=== PATIENT | female | born 1995 | race Hispanic/Latino ===

== ENCOUNTER 2018-06-03 17:43 | Emergency (ER) | payer BC ==
[2018-06-03 18:10] LABS: #Lymphocytes 2.2 thou/uL (1.20-3.40); #Monocytes 0.3 thou/uL (0.11-0.59); #Neutrophils 5.8 thou/uL (1.40-6.50); %Basophils 0.6 % (0.0-1.0); %Eosinophils 0.3 % (0.0-10.0); %Lymphocytes 25.8 % (21.0-51.0); %Monocytes 3.9 % (0.0-10.0); %Neutrophils 69.4 % (42.0-75.0); Hemoglobin 13.9 g/dL (12.0-16.0); Mean Corpuscular HGB CONC 35.3 g/dL (32.0-36.0); Mean Corpuscular Hemoglobin 31.9 pg (27.0-31.0); Mean Corpuscular Volume 90.5 fL (78.0-98.0); Mean Platelet Volume 8.5 fL (7.4-10.4); Platelet Count 256 thou/uL (130-400); RBC Distribution Width 11.1 % (11.5-14.5); Red Blood Cell (RBC) Count 4.35 mill/uL (4.20-5.40); White Blood Cell (WBC) Count 8.4 thou/uL (4.8-10.8)
[2018-06-03 18:31] LABS: Bilirubin Negative (Negative); Blood, Urine Negative (Negative); Clarity CLEAR (Clear); Glucose, Urine (Dipstick) Negative (Negative); Leukocyte Trace (Negative); Nitrite Negative (Negative); Protein, Urine (Dipstick) Negative (Neg-Trace); Specific Gravity, Urine 1.012 (1.002-1.036); Urobilinogen 0.2 mg/dL (0.2-1.0)
[2018-06-03 18:32] LABS: Pregnancy Test - Urine (BHCG) POSITIVE (Negative); Pregu Control Bar Appear? YES (CONTROL BAR); Specific Gravity 1.012 (1.002-1.036)
[2018-06-03 18:33] LABS: Pregu Control Background? CLEAR/WHITE (CLR/WHITE)
[2018-06-03 18:34] LABS: Bacteria/HPF None Seen HPF (None Seen); Hyaline Casts/LPF 0-3 HYALINE CAST LPF (0-3 Hyaline); Pathc Cast-AUWi Flag 0.58 (0-2.49); RBC/HPF 0-3 HPF (0-3); Squamous Epithelial 0-3 HPF (0-3)
[2018-06-03 18:38] LABS: ALT (SGPT) 15 U/L (8-55); AST (SGOT) 13 U/L (5-34); Albumin 4.3 g/dL (3.5-5.0); Alkaline Phosphatase 52 U/L (40-150); Anion Gap 12 mmol/L (10-20); BUN (Urea Nitrogen) 10 mg/dL (7.0-18.7); Bilirubin, Total 0.8 mg/dL (0.2-1.2); Calc. Creatinine Clearance 0 mL/min (70-130); Calcium 9.5 mg/dL (7.8-10.44); Carbon Dioxide 24 mmol/L (22-29); Chloride 103 mmol/L (98-107); Estimated GFR-MDRD Greater than 90; Glucose 108 mg/dL (70-105); Potassium 3.5 mmol/L (3.5-5.1); Protein, Total 7.3 g/dL (6.0-8.3); Sodium 135 mmol/L (136-145)
--- NOTE | 2018-06-03 21:54 | ULT ---
TRANSVAGINAL PELVIC ULTRASOUND: INDICATIONS: Pelvic pain. TECHNIQUE: Manzo-scale, color Doppler, and vascular duplex with spectral analysis was obtained. FINDINGS: There is an intrauterine gestational sac containing a yolk sac, measuring 4 mm, with a pole demond suring 4 mm. The estimated gestational age by ultrasound is 6 weeks 2 days with an estimated due date of 9. Cardiac activity is noted at 108 beats per minute. The uterus measures 9.5 x 5.8 x 5.7 cm. The right ovary measures 3.6 x 2 x 2.2 cm. The left ovary m easures 3 x 2.6 x 2.4 cm. There is normal flow to both ovaries. There is a 2 cm cyst within the rig ht ovary. There is a hemorrhagic cyst within the left ovary, measuring 1.1 cm. No free fluid is evident. IMPRESSION: 1. Single live intrauterine gestation. 2. Bilateral ovarian cysts. The hemorrhagic cyst seen within the left ovary measures 1.1 cm. POS: [facility]
[2018-06-06 03:07] LABS: Chlamydia by PCR Not Detected (NotDetected); GC by PCR Not Detected (NotDetected)
== END 2018-06-03 22:57 | disposition home or self-care (01) ==
LOC: ERS 17:43
DX: O99.89 Other specified diseases and conditions complicating pregnancy, childbirth and the puerperium (principal); R10.9 Unspecified abdominal pain; Z3A.01 Less than 8 weeks gestation of pregnancy
CPT/HCPCS: 36415; 76856; 80053; 81003; 81015; 81025; 85025; 87086; 87480; 87491; 87510; 87591; 87660

== ENCOUNTER 2018-06-24 21:09 | Emergency (ER) | payer BC ==
--- NOTE | 2018-06-25 07:02 | ULT ---
PELVIC ULTRASOUND: 06/24/2018 HISTORY: Pelvic pain and evidence or a prior intrauterine gestation on pelvic ultrasound of 06/03/2018. COMPARISON: 06/03/2018 FINDINGS: Again noted is a fluid collection in the endometrial canal, which contains a pole and a yolk sa c. Cardiac Doppler demonstrates heart tones with a heart rate of 182 beats per minute. The crown-rump length measures 2.07 cm, corresponding to a gestational age by ultrasound of 8 weeks 5 days. Gestational age by ultrasound is 8 weeks 3 days. There has been interval growth when compared to the prior exam. No subchorionic hemorrhage is appreciated on this examination. The right ovary measures 3 cm x 1.7 cm x 2.7 cm, with the left ovary measuring 4.1 cm x 2.2 cm x 3.2 cm. Doppler evaluation of each ovary with spectral analysis and color-flow evaluation demonstrates a rterial flow in each ovary. There are small hypoechoic to anechoic cystic structures involving each ovary, better imaged on the p rior examination and shown to represent dominant follicles. No free fluid is seen in the cul-de-sac. IMPRESSION: 1. Single intrauterine gestation with heart tones documented. Estimated gestational age by cr own-rump length is 8 weeks 5 days. 2. No evidence of a subchorionic hemorrhage. 3. Dominant follicles in each ovary. POS: [facility]
== END 2018-06-24 23:47 | disposition home or self-care (01) ==
LOC: ERS 21:09
DX: O9A.211 Injury, poisoning and certain other consequences of external causes complicating pregnancy, first trimester (principal); S70.00XA Contusion of unspecified hip, initial encounter; Z3A.01 Less than 8 weeks gestation of pregnancy; W01.0XXA Fall on same level from slipping, tripping and stumbling without subsequent striking against object, initial encounter
CPT/HCPCS: 76856; 93976

== ENCOUNTER 2019-01-31 09:03 | Inpatient (IN) | payer BC, OTHER ==
[2019-01-31 09:40] VITALS: BMI 37.8
[2019-01-31] MEDS ORDERED: Acetaminophen 500 MG TAB PO PRN (09:51)
[2019-01-31] MEDS ORDERED: Misoprostol 200 MCG TAB PR PRN (09:51)
[2019-01-31] MEDS ORDERED: Promethazine HCl 25 MG/ML VIAL IM PRN (09:51)
[2019-01-31] MEDS ORDERED: Ondansetron PF 4 MG/2 ML Vial IVP PRN ×2 (09:51→11:27)
[2019-01-31] MEDS ORDERED: Ibuprofen 800 MG TAB PO PRN (09:51)
[2019-01-31] MEDS ORDERED: Butorphanol Tartrate 1 MG/ML VIAL SLOW IVP PRN (09:51)
[2019-01-31] MEDS ORDERED: Diphenoxylate HCl/Atropine Tablet PO PRN ×2 (09:51)
[2019-01-31] MEDS ORDERED: hydrALAZINE 20 MG/ML VIAL SLOW IVP PRN ×2 (09:51→11:27)
[2019-01-31] MEDS ORDERED: Methylergonovine 0.2 MG/ML VIAL IM PRN ×2 (09:51→11:27)
[2019-01-31] MEDS ORDERED: Carboprost 250 MCG/ML AMP IM PRN (09:51)
[2019-01-31] MEDS ORDERED: Lidocaine 1% (PF) 30 ML VIAL SC PRN (09:51)
[2019-01-31] MEDS ORDERED: NS / Oxytocin 40 units/1000ml 1,000 ML IV PRN (09:51)
[2019-01-31] MEDS ORDERED: HYDROcodone/Acetaminophen 5/325 mg Tablet PO PRN ×3 (09:51→11:27)
[2019-01-31] MEDS ORDERED: NS / Oxytocin 40 units/1000ml 1,000 ML ONE (09:54)
[2019-01-31] MEDS ORDERED: Lidocaine 1% (PF) 30 ML VIAL ONE (09:54)
--- NOTE | 2019-01-31 09:55 | PDOC.LDHP ---
Labor and Delivery H&P Chief complaint: contractions HPI: 23 y/o at 40w0d presents with ctx. Denies VB, LOF, or decreased FM. ROS neg for HEENT, CV, pulm, GI, , neuro, psych, skin, musculoskeletal, or constitutional symptoms other than mentioned above. OB History Details: 1 prior term Current complications: none Past Medical History: None Current medications: pre-slick vitamins Previous surgical history: cholecystectomy Allergies/Adverse Reactions: Allergies Allergy/AdvReac Type Severity Reaction Status Date / Time No Known Allergies Allergy Verified 01/31/19 09:41 Social history: none - Physical Exam Vital signs reviewed and normal: yes General: NAD, breathing through contractions Lungs: nonlabored breathing Abdomen: gravid Extremeties: no edema FHT: category 1 (130s, mod variability, + accels, no decels) [place] contractions every: 2 mins - Vaginal Exam cm dilated: 8 Effacement: 100% Station: 0 - Assessment L&D Assessment: term patient in labor - Plan Plan: admit to L&D, informed consent obtained, anesthesia consult for pain management (if desired) -: Dr. Delgado unavailable, care turned over to [facility].
[2019-01-31] MEDS ORDERED: Lactated Ringer's 1,000 ML IV SCH (10:00)
[2019-01-31 10:27] LABS: Hemoglobin 14.1 g/dL (12.0-16.0); Mean Corpuscular HGB CONC 36.5 g/dL (32.0-36.0); Mean Corpuscular Hemoglobin 32.7 pg (27.0-31.0); Mean Corpuscular Volume 89.7 fL (78.0-98.0); Mean Platelet Volume 9.3 fL (7.4-10.4); Platelet Count 241 thou/uL (130-400); RBC Distribution Width 11.9 % (11.5-14.5); Red Blood Cell (RBC) Count 4.32 mill/uL (4.20-5.40); White Blood Cell (WBC) Count 11.4 thou/uL (4.8-10.8)
[2019-01-31 11:04] LABS: Syphilis Antibody Nonreactive (Nonreactive); Syphilis Antibody Index 0.05 S/CO (<1.00 Non-Reactive)
[2019-01-31 11:05] LABS: HBSAg Index 0.16 S/CO (0-0.99); Hep B Surf Ag Non-Reactive S/CO (NonReactive)
[2019-01-31] MEDS ORDERED: diphenhydrAMINE 25 MG CAP PO PRN (11:27)
[2019-01-31] MEDS ORDERED: Benzocaine-Menthol 82.5 ML CAN TOP PRN (11:27)
[2019-01-31] MEDS ORDERED: Preparation H Ointment 28 GM TUBE PR PRN (11:27)
[2019-01-31] MEDS ORDERED: Lanolin Ointment 7 GM TUBE TOP PRN (11:27)
[2019-01-31] MEDS ORDERED: Bisacodyl 10 MG SUPP PR PRN (11:27)
[2019-01-31] MEDS ORDERED: Zolpidem Tartrate 5 MG TAB PO PRN (11:27)
[2019-01-31] MEDS ORDERED: Milk Of Magnesia 30 ML UDCUP PO PRN (11:27)
[2019-01-31] MEDS ORDERED: Misoprostol 200 MCG TAB VAG PRN (11:27)
[2019-01-31] MEDS ORDERED: NS / Oxytocin 40 units/1000ml 1,000 ML IV SCH (11:30)
--- NOTE | 2019-01-31 11:39 | PDOC.OPDEL ---
OB Operative/Delivery Note Delivery Dr/Surgeon: Marialuisa Pre-Delivery Diagnosis: active labor Procedure/Post Delivery Dx: spontaneous vaginal delivery Weeks gestation: 40 Anesthesia: none - Findings A Sex: male Weight: 8 lb 3.995 oz - 1 min: 9 - 5 min: 9 - Additional Findings/Plan Placenta delivered: spontaneous Repaired Obstetrical Laceration: 1st degree (no repair required) Post delivery plan: routine recovery
[2019-01-31] MEDS ORDERED: Cyclobenzaprine 10 MG TAB PO SCH (11:49)
--- NOTE | 2019-01-31 11:55 | PDOC.EVN ---
Event Note - Event Note Event Note: Patient called out feeling significant pain. Upon evaluation, pain located in left adductor and reproducible with deep palpation. Pain reportedly present for the last few weeks, likely exacerbated with muscle strain from delivery. Offered dose of Flexeril and heat/ice pack.
--- NOTE | 2019-01-31 14:22 | PDOC.EVN ---
Event Note - Event Note Event Note: Patient continuing to have pain on left side but now more localized to left labia. I reexamined the patient and there is now a ~2-3cm firm mass on the left vaginal side wall, likely representing a vaginal hematoma. Vitals are stable with pulse in 60s currently. Recommend conservative management with analgesia and ice and close monitoring on L&D at this time. Will repeat exam in 1 hour. CBC, coags ordered. Discussed findings with patient who voiced understanding.
[2019-01-31 15:10] LABS: #Monocytes 0.5 thou/uL (0.11-0.59); %Basophils 0.1 % (0.0-1.0); %Eosinophils 0.1 % (0.0-10.0); %Lymphocytes 5.9 % (21.0-51.0); %Neutrophils 90.9 % (42.0-75.0); Hemoglobin 12.4 g/dL (12.0-16.0); Mean Corpuscular HGB CONC 36.5 g/dL (32.0-36.0); Mean Corpuscular Hemoglobin 33.1 pg (27.0-31.0); Mean Corpuscular Volume 90.8 fL (78.0-98.0); Mean Platelet Volume 8.6 fL (7.4-10.4); PTT 29.5 SEC (22.9-36.1); Platelet Count 231 thou/uL (130-400); Prothrombin Time 12.9 SEC (12.0-14.7); RBC Distribution Width 11.9 % (11.5-14.5); Red Blood Cell (RBC) Count 3.74 mill/uL (4.20-5.40); White Blood Cell (WBC) Count 16.5 thou/uL (4.8-10.8)
--- NOTE | 2019-01-31 15:21 | PDOC.EVN ---
Event Note - Event Note Event Note: Reexamined patient - area is less firm and has not enlarged. Pain improved with pain medication. Labs pending, vitals stable. Will repeat exam in one hour.
[2019-01-31] MEDS: Ibuprofen 800 MG TAB PO SCH ×2 (15:50→21:39)
--- NOTE | 2019-01-31 16:17 | PDOC.EVN ---
Event Note - Event Note Event Note: Pain improving. Hematoma stable on evaluation. Vitals stable. Labs reviewed, normal coagulation studies. May move to floor.
[2019-01-31] MEDS: Ferrous Sulfate 325 MG TAB PO SCH (17:36)
[2019-01-31] MEDS: HYDROcodone/Acetaminophen 5/325 mg Tablet PO PRN (18:15)
[2019-01-31] MEDS: Docusate Calcium (SURFAK) 240 MG CAP PO SCH (21:40)
[2019-02-01] MEDS: Ibuprofen 800 MG TAB PO SCH ×3 (05:52→21:01)
--- NOTE | 2019-02-01 07:39 | PDOC.PP ---
Post Progress Note Post Day #: 1 Subjective: Doing well. Pain much improved this morning after sitz bath last night. PO intake tolerated: yes Ambulation: yes Vital Signs (12 hours) Temp Pulse Resp BP 02/01/19 04:24 98.1 F 92 16 104/56 L 01/31/19 23:50 97.6 F 82 16 100/55 L Weight Weight 200 lb - Physical Examination General: NAD Respiratory: non-labored breathing Abdominal: lochia (normal), no distention, appropriately TTP Fundus firm & at: below umbilicus Neurological: no gross focal deficits Psychiatric: A&Ox3, normal affect Result Diagrams: 01/31/19 14:55 Additional Labs: Post Labs Blood Type O POSITIVE 01/31/19 10:11 Hep Bs Antigen Non-Reactive S/CO (NonReactive) 01/31/19 10:11 - Assessment/Plan Continue routine care. Likely d/c tomorrow morning.
[2019-02-01] MEDS: Docusate Calcium (SURFAK) 240 MG CAP PO SCH ×2 (08:55→21:01)
[2019-02-01] MEDS: Prenatal Vitamin 1 TAB PO SCH (08:55)
[2019-02-01] MEDS: HYDROcodone/Acetaminophen 5/325 mg Tablet PO PRN ×2 (08:56→14:02)
[2019-02-01] MEDS ORDERED: FLU VACC QS2019-20(6MOS UP)/PF 60 MCG/0.5 ML SYRINGE IM ONE (09:45)
[2019-02-01] MEDS ORDERED: Adacel (T-DAP) 0.5 ML SYRINGE IM ONE (11:27)
[2019-02-01] MEDS ORDERED: Measles/Mumps/Rubella 10 MCG/0.5 ML VIAL SC ONE (11:27)
[2019-02-01] MEDS ORDERED: Varicella virus, LIVE 0.5 ML VIAL SC ONE (11:27)
[2019-02-01] MEDS: Ferrous Sulfate 325 MG TAB PO SCH ×2 (14:00→16:51)
[2019-02-02] MEDS: Ibuprofen 800 MG TAB PO SCH (06:04)
[2019-02-02] MEDS: Ferrous Sulfate 325 MG TAB PO SCH (08:54)
[2019-02-02] MEDS: Docusate Calcium (SURFAK) 240 MG CAP PO SCH (08:54)
[2019-02-02] MEDS: Prenatal Vitamin 1 TAB PO SCH (08:54)
[2019-02-02 09:32] VITALS: BP 100/62; TEMP 97.4
--- NOTE | 2019-02-03 13:58 | DIS ---
DATE OF ADMISSION: 01/31/2019 DATE OF DISCHARGE: 02/02/2019 ADMITTING DIAGNOSES: 1. Intrauterine at 40 weeks. 2. Labor. DISCHARGE DIAGNOSES: 1. Intrauterine at 40 weeks. 2. Labor. PROCEDURE: Term spontaneous vaginal delivery. HOSPITAL COURSE: The patient is a 23-year-old G2, now P2 female, presenting to Labor and Delivery at 40 weeks' gestation in active labor resulting in a term spontaneous vaginal delivery. It was complicated by a small vulvar hematoma that had spontaneously stopped growing. She is now day 2. The patient reports that she is tolerating p.o., voiding on her own, having decreased lochia and good pain control. She confirms that this vulvar hematoma has not grown any more since its initial presentation. She reports her pain is improving but still present. The patient will be discharged to home on ibuprofen as needed for pain. She has instructions to follow up with her primary OB, Dr. Delgado in 6 weeks or sooner if she experiences fever, increasing pain or bleeding. Job ID: [id number]
== END 2019-02-02 13:20 | disposition home or self-care (01) | DRG 806 ==
LOC: L&D/OP 09:03 → L&D 09:51 → 3SW 17:24
PROVIDERS: ADMIT Obstetrics & Gynecology; ATTEND Obstetrics & Gynecology
PROC: 10E0XZZ Delivery of Products of Conception, External Approach (ICD-10-PCS; principal; 2019-01-31)
DX: O70.0 First degree perineal laceration during delivery (principal); O71.7 Obstetric hematoma of pelvis; Z37.0 Single live birth; Z3A.40 40 weeks gestation of pregnancy
CPT/HCPCS: 36415; 85027; 85384; 85610; 85730; 86780; 86850; 86900; 86901; 87340; 99285; J2001

== ENCOUNTER 2020-04-14 10:42 | Emergency (ER) | payer BC, SELFPAY ==
[2020-04-14 17:49] LABS: SARS-CoV-2 MS2 Positive; SARS-CoV-2 N Gene Negative; SARS-CoV-2 S Gene Negative; SARS-CoV-2 by NAA Not Detected (NotDetected); SARS-CoV-2 orf1ab Negative
== END 2020-04-14 11:30 | disposition home or self-care (01) ==
LOC: ERS 10:42
DX: Z20.828 Contact with and (suspected) exposure to other viral communicable diseases (principal)
CPT/HCPCS: 87635; 99283; U0003

== ENCOUNTER 2020-12-17 08:19 | Emergency (ER) | payer SELFPAY ==
[2020-12-17 19:39] LABS: SARS-CoV-2 PCR by NAA Not Detected (NotDetected)
== END 2020-12-17 09:16 | disposition home or self-care (01) ==
LOC: ERS 08:19
DX: J02.9 Acute pharyngitis, unspecified (principal); Z20.822 Contact with and (suspected) exposure to COVID-19
CPT/HCPCS: 99283; U0003; U0005

== ENCOUNTER 2023-03-26 16:12 | Emergency (ER) | payer SELFPAY ==
[2023-03-26 17:31] LABS: Bacteria/HPF None Seen HPF (None Seen); Bilirubin Negative (Negative); Blood, Urine Negative (Negative); CAUTI Indications for Culture Fever or rigors; Clarity Turbid (Clear); Glucose, Urine (Dipstick) Normal (Negative); Ketone, Urine Negative (Negative); Leukocyte 25 Leu/uL (Negative); Nitrite Negative (Negative); Protein, Urine (Dipstick) Negative (Neg-Trace); RBC/HPF 0-3 HPF (0-3); Specific Gravity, Urine 1.019 (1.002-1.036); Urobilinogen Normal mg/dL (Less than 2); WBC/HPF 0-3 HPF (0-3); pH, Urine 7.5 (5.0-9.0)
[2023-03-26 17:36] LABS: Urine Culture Reflex No No
[2023-03-27 11:13] LABS: Chlam.trachomatis by PCR,Urine Not Detected (NotDetected); GC N.gonorrhoeae PCR,UrineVOID Not Detected (NotDetected)
== END 2023-03-26 17:15 | disposition home or self-care (01) ==
LOC: ERS 16:12
DX: N76.0 Acute vaginitis (principal)
CPT/HCPCS: 81001; 87480; 87491; 87510; 87591; 87660; 99283

== ENCOUNTER 2024-03-17 15:29 | Outpatient (CLI) | payer OTHER | END 2024-03-17 15:30 | disposition home or self-care (01) | LOC: BICULT 15:29 | PROVIDERS: ATTEND Family Medicine | DX: Z34.82 Encounter for supervision of other normal pregnancy, second trimester (principal); Z3A.20 20 weeks gestation of pregnancy | CPT/HCPCS: 76805 ==